=== PATIENT | male | born 2000 | race Caucasian/White ===

== ENCOUNTER 2022-01-27 14:45 | Emergency (ER) | payer OTHER, SELFPAY ==
--- NOTE | 2022-01-27 15:22 | ED.EAR ---
HPI - Ear Problem General Chief complaint: Ear Stated complaint: Bilateral Ear Irritation Time Seen by Provider: 01/27/22 15:22 History of Present Illness HPI Narrative: Quintin Bolden is a 21 yo male with no PMH who coms to [facility] post testing positive for COVID 5 days with complaints of bilateral ear pain that started yesterday. He states he has intermittent sharp pain in both ears; his major symptoms are of COVID have been fatigue, cough but this has resolved. Related Data Allergies Allergy/AdvReac Type Severity Reaction Status Date / Time Penicillins Allergy Mild Hives Verified 01/27/22 15:16 Review of Systems Review of Systems: CONSTITUTIONAL: Denies fever, chills, sweats. EYES: Denies visual changes, redness, discharge. ENT: Denies rhinorrhea, congestion, sore throat, bilateral otalgia. CARDIOVASCULAR: Denies chest pain, palpitations, edema. RESPIRATORY: Denies dyspnea, wheezing, cough GASTROINTESTINAL: Denies abdominal pain, nausea, vomiting, diarrhea. GENITOURINARY: Denies dysuria, hematuria, abnormal discharge SKIN: Denies rash or itching. NEUROLOGIC: Denies numbness, or focal weakness. PSYCHIATRIC: Denies anxiety or depression. [facility] Social History Social History (Updated 01/27/22 @ 15:25 by Angela Mims CNP) Smoking status: Never smoker Alcohol intake: current Comments At time of signature, I agree with nursing past medical, surgical, social and family history. There is no relevant family history pertinent to the presenting complaint. Exam Narrative: GENERAL: This is a well-nourished, well-developed patient, in mild distress. HEAD: normocephalic, atraumatic. EYES: Sclera clear/white. Vision is grossly intact. EARS: External ears normal, auditory canals erythema with small drainage, TMs normal without perforation. Hearing grossly intact. NOSE: External nose normal without nasal discharge, nares without redness, no rhinorrhea. THROAT: Mucous membranes moist, NECK: Neck supple, non-tender CARDIOVASCULAR: Regular rate and rhythm without murmurs, gallops, or rubs. RESPIRATORY: Clear to auscultation. Breath sounds equal bilaterally. No wheezes, rales, or rhonchi. GASTROINTESTINAL: Not done SKIN: warm, intact with no suspicious lesions or rash, good texture and turgor. NEURO: awake, alert, and oriented to person, place and time. There were no obvious focal neurologic abnormalities. Steady gait EXTREMITIES: Normal range of motion. BACK: Nontender without deformity Course Course Emergency Course: Patient diagnosed with COVID on Sunday and has had mostly fatigue and a little bit of a cough which is resolved he now has bilateral ear pain On exam his ears are red and draining and started on eardrops, Zyrtec in the morning, Tylenol or ibuprofen for pain Level of Care: [facility] Vital Signs Vital signs: Vital Signs Temperature 98.7 F 01/27/22 15:28 Pulse Rate 87 01/27/22 15:28 Respiratory Rate 16 01/27/22 15:28 Blood Pressure 145/91 H 01/27/22 15:28 Pulse Oximetry 99 01/27/22 15:28 Oxygen Delivery Room Air 01/27/22 15:28 Temperature 98.7 F 01/27/22 15:28 Pulse Rate 87 01/27/22 15:28 Respiratory Rate 16 01/27/22 15:28 Blood Pressure 145/91 H 01/27/22 15:28 Pulse Oximetry 99 01/27/22 15:28 Oxygen Delivery Room Air 01/27/22 15:28 Medical Decision Making Differential Diagnosis Differential Diagnosis: [place] media versus otitis externa versus eustachian tube dysfunction Vital Signs Vital Signs: Vital Signs Temperature 98.7 F 01/27/22 15:28 Pulse Rate 87 01/27/22 15:28 Respiratory Rate 16 01/27/22 15:28 Blood Pressure 145/91 H 01/27/22 15:28 Pulse Oximetry 99 01/27/22 15:28 Oxygen Delivery Room Air 01/27/22 15:28 Temperature 98.7 F 01/27/22 15:28 Pulse Rate 87 01/27/22 15:28 Respiratory Rate 16 01/27/22 15:28 Blood Pressure 145/91 H 01/27/22 15:28 Pulse Oximetry 99 01/27/22 15:28 Oxygen Deliv
[2022-01-27 15:28] VITALS: BP 145/91; PULSE 87; RESP 16; TEMP 37.1; O2SAT 99
== END 2022-01-27 15:42 | disposition home or self-care (01) ==
PROVIDERS: Emergency Provider Nurse Practitioner
DX: H66.003 Acute suppurative otitis media without spontaneous rupture of ear drum, bilateral (principal); Z86.16 Personal history of COVID-19
CPT/HCPCS: 99213; G0463